=== PATIENT | male | born 1960 | race Caucasian/White ===

== ENCOUNTER 2020-12-18 11:23 | Inpatient (IN) | payer OTHER, SELFPAY ==
--- NOTE | ~2020-12-18 | CT_ITS ---
EXAMINATION: CT ANGIOGRAM OF THE CHEST WITH AND WITHOUT CONTRAST (CT PULMONARY ANGIOGRAM FOR PE) CLINICAL INFORMATION: Reason for Exam hypoxia, COVID-19 COMPARISON: Previous chest x-ray obtained the same day TECHNIQUE: Prior to contrast administration, noncontrast localization images were obtained. Subsequently, multidetector volumetric imaging was performed from the thoracic inlet to below the diaphragms following the administration of 65 mL Omnipaque 350 intravenous contrast. No contrast reaction reported Sagittal, coronal, and MIP oblique sagittal reformatted images were obtained on the CT workstation, uploaded to PACS, and reviewed. This CT examination was performed using dose optimization techniques as appropriate, variously including the following: *Automated exposure control *Adjustment of mA and/or kV according to patient size (this includes techniques or standardized protocols for targeted exams where dose is matched to indication/reason for exam; i.e. extremities or head) *Use of iterative reconstruction technique Total exam dose-length product 368 mGy-cm FINDINGS: QUALITY OF STUDY/CONTRAST BOLUS: Satisfactory. PULMONARY ARTERIES: No central or segmental pulmonary emboli. THORACIC AORTA: No aneurysm or dissection. LUNG: There is scattered peripheral areas of increased groundglass attenuation and increased interstitial markings or crazy paving pattern seen throughout the lungs. This is consistent with patient's history of Covid infection. PLEURA: No pleural effusion or pneumothorax. MEDIASTINUM: The heart is slightly enlarged. No pericardial effusion. There is shotty mediastinal lymphadenopathy. There are no enlarged lymph nodes. No evidence of septal bowing or right heart strain. CHEST WALL/AXILLA: No axillary or internal mammary lymphadenopathy. OSSEOUS STRUCTURES: There are degenerative changes of the spine. There is a 5 mm lucent lesion in the left side of the T4 vertebral body. UPPER ABDOMEN: There is diverticulosis of the colon. There are small low-attenuation liver lesions. The largest measures 1.3 x 2.3 cm in the lateral segment of the left lobe of the liver. These are difficult to characterize No reflux of contrast into the hepatic veins to suggest elevated right heart pressures. CT/CT angio chest PE protocol IMPRESSION: No evidence of pulmonary embolism. Bilateral peripheral infiltrates compatible with patient's diagnosis of Covid infection. Enlarged heart. Low-attenuation liver lesions difficult to characterize. Nonspecific 5 mm lucent lesion in the T4 vertebral body. VTE: negative
--- NOTE | ~2020-12-18 | US_ITS ---
EXAMINATION: US ABDOMEN LIMITED CLINICAL INFORMATION: Assess hepatic lesion. COMPARISON: CT 12/18/2020 TECHNIQUE: Real-time imaging of the right upper quadrant abdominal viscera. Limited portable exam by the bedside. FINDINGS: PANCREAS: Not visualized due to overlying bowel gas. LIVER: Multiple cysts largest left lobe measuring 11 mm corresponding to the recent CT scan. The liver is normal in size. The liver contour is normal. Parenchymal echogenicity is normal. No other focal abnormality. There is no intrahepatic biliary duct dilatation seen. GALLBLADDER: Normal. The gallbladder is physiologically distended without evidence of stones, sludge, polyps, wall thickening or pericholecystic fluid. COMMON BILE DUCT: Normal in caliber measuring 0.4 cm in diameter. RIGHT KIDNEY: Normal. No hydronephrosis. No renal calculi or focal parenchymal lesions. The kidney measures 10.3 cm in maximum dimension. FREE FLUID: None. US/US abdomen limited IMPRESSION: Hepatic cysts only.
--- NOTE | ~2020-12-18 | XR_ITS ---
EXAMINATION: XR CHEST CLINICAL INFORMATION: Hypoxia COMPARISON: None TECHNIQUE: AP portable view of the chest was obtained. FINDINGS: There are patchy regions of airspace disease seen bilaterally. Heart normal size. No evidence of pulmonary edema. No pneumothorax or pleural effusion. XR/XR chest 1V IMPRESSION: Bilateral regions of patchy parenchymal disease.
[2020-12-18 11:40] VITALS: BP 124/73; PULSE 64; RESP 18; O2SAT 93; BMI 33.9
--- NOTE | 2020-12-18 11:47 | ECG_ITS ---
Test Reason : COVID HYPOX Blood Pressure : / mmHG Vent. Rate : 060 BPM Atrial Rate : 060 BPM P-R Int : 182 ms QRS Dur : 100 ms QT Int : 402 ms P-R-T Axes : 043 000 008 degrees QTc Int : 402 ms Normal sinus rhythm Incomplete right bundle branch block Borderline ECG When compared with ECG of 26-MAY-2019 18:11, Premature ventricular complexes are no longer Present Questionable change in QRS axis Referred By: Courtney Belle Electronically Signed By:SHIMA PETTY
[2020-12-18 12:16] LABS: Eosinophils Percent Auto 0.2 % (0-4); Hematocrit 46.8 % (42-52); Hemoglobin 15.8 g/dl (14.0-18.0); Imm Gran Abs Auto 0.02 X10*3/uL (0.00-0.03); Imm Gran Pct Auto 0.5 % (0.0-0.4); Lymphocytes Absolute Auto 1.1 X10*3/uL (1.2-4.9); Lymphocytes Percent Auto 25.5 % (20-40); MANUAL DIFF FLAG SCAN; Mean Corpuscular HGB Conc 33.8 g/dl (31.0-36.0); Mean Corpuscular Volume 88.8 fL (80-98); Mean Platelet Volume 10.1 fL (9.4-12.4); Monocytes Absolute Auto 0.3 X10*3/uL (0.1-1.2); Monocytes Percent Auto 5.9 % (2-11); Neutrophils Absolute Auto 2.9 X10*3/uL (2.0-8.3); Neutrophils Percent Auto 67.9 % (45-73); Platelet Count 224 X10*3/uL (160-400); Red Blood Count 5.27 X10*6/uL (4.60-5.80); Red Cell Distribution Width 12.2 % (11.0-16.0); SCAN SMEAR FLAG 1; White Blood Count 4.2 X10*3/uL (4.8-10.8)
--- NOTE | 2020-12-18 12:16 | ED_ITS ---
HPI - General Adult General Chief complaint: Upper Respiratory Symptoms Stated complaint: covid + low o2 Time Seen by Provider: 12/18/20 11:40 Source: patient Mode of arrival: ambulatory Limitations: no limitations History of Present Illness HPI narrative: 60 y/o male with history of HTN and recent COVID-19 diagnosed on 12/09 who presents from home with reports of low oxygen levels on his pulse oximeter at home. He reports dropping to 87% last night. He was given monoclonal antibody treatment two days ago, arranged by his PCP. He never was vaccinated against COVID. He denies any SOB or chest pain but has a harsh cough with difficulty taking a deep breath. He has ongoing intermittent fevers, nausea and vomiting. MD complaint: hypoxia Onset (ago): day(s) (1) Location: chest Radiation: non-radiation Severity: moderate Quality: aching Pain Consistency: intermittent Relieving factors: none Exacerbating factors: other (deep breaths) Associated symptoms: cough and nausea/vomiting Treatments prior to arrival: none Related Data Allergies Allergy/AdvReac Type Severity Reaction Status Date / Time No Known Allergies Allergy Unverified 01/04/20 15:38 [No Known Allergies*] Review of Systems Review of Systems: Constitutional: + Fever, + Chills ENT/Mouth: + sore throat, + Rhinorrhea, No Swallowing Difficulty Eyes: No Eye Pain, No Swelling, No Redness Cardiovascular: + Chest Pain, No SOB, No Orthopnea, No Edema Respiratory: + Cough, No Sputum, No Wheezing, No dyspnea Gastrointestinal: + Nausea, + Vomiting, No Diarrhea, No abdominal Pain Genitourinary: No Dysuria, No Urinary Frequency, No Hematuria Musculoskeletal: No joint pain, + Myalgias Skin: No Skin Lesions, No rash Neuro: No Weakness, No Numbness, No Dizziness, + Headache Psych: + Anxiety/Panic, No Depression Heme/Lymph: No Bruising, No Lymphadenopathy PMFSH Past Medical History Attestation statement: The following information was validated with the patient. Medical History (Updated 12/18/20 @ 16:12 by PRAMOD Schmidt) HTN (hypertension) Social History Social History Patient Tobacco Use Status: Never used Tobacco Use of substances other than those prescribed or required for medical reasons: No Advance Directives: No Advance Directives Information Provided: No Physical Exam Vital Signs: Vital Signs: Last Vital Signs Temp 98.5 F 12/18/20 12:49 Pulse 53 12/18/20 13:44 Resp 20 12/18/20 13:44 BP 151/87 H 12/18/20 13:44 Pulse Ox 88 L 12/18/20 15:45 Oxygen Flow Rate 2 12/18/20 12:49 Body Mass Index 33.9 Appearance: Alert. Oriented X3. No acute distress. Eyes: Pupils equal, round and reactive to light. left eye with lateral strabismus ENT: Pharynx normal. Neck: Normal inspection. Neck supple. CVS: Normal heart rate and rhythm. Pulses normal. Respiratory: No respiratory distress. Breath sounds with coarse crackles bilateral bases to mid lung fieldsl. Abdomen: Soft and nontender. +BS x4 Skin: Skin warm and dry. Normal skin color. Normal skin turgor. No rashes. Extremities: No lower extremity edema. No calf swelling, erythema or tenderness Neuro: Oriented X 3. No motor deficit. No sensory deficit. Course Course Course Narrative: 60 y/o male with COVID-19, symptoms started 12 days ago who is presenting to the ER with ongoing symptoms of the virus and hypoxia on his pulse oximeter at home. He got outpatient monoclonal antibodies 2 days ago, very late in his disease process. He was 90% on RA on arrival, no respiratory distress, suarez rsh cough with difficulty taking a deep breath. Will get CXR, EKG, inflammatory markers and probable CTA to r/o PE. Reevaluation(s) Reevaluation #1: DDIMER 700s - CTA ordered. SpO2 93-96% on 2L NC. Decadron given. Reevaluation #2: CTA without PE but showing bilateral peripheral infiltrates. Off of supplemental oxygen he is saturating 88-89% at rest. Placed back on O2 with improvement. Plan for admission for acute hypoxia. Dr. Chacon TT for admission. Patient agreeable with plan. Medical Decision Making Lab Data Result diagrams: 12/18/20 12:03 12/18/20 12:03 Labs: Lab Results 12/18/20 12/18/20 12/18/20 Range/Units 12:03 12:03 12:03 WBC 4.2 L (4.8-10.8) X10*3/uL RBC 5.27 (4.60-5.80) X10*6/uL Hgb 15.8 (14.0-18.0) g/dl Hct 46.8 (42-52) % MCV 88.8 (80-98) fL MCH 30.0 (27.0-33.0) pg MCHC 33.8 (31.0-36.0) g/dl RDW 12.2 (11.0-16.0) % Plt Count 224 (160-400) X10*3/uL MPV 10.1 (9.4-12.4) fL Immature Gran % (Auto) 0.5 H (0.0-0.4) % Neut % (Auto) 67.9 (45-73) % Lymph % (Auto) 25.5 (20-40) % [place] % (Auto) 5.9 (2-11) % Eos % (Auto) 0.2 (0-4) % Baso % (Auto) 0.0 (0-2) % Lymph # (Auto) 1.1 L (1.2-4.9) X10*3/uL [place] # (Auto) 0.3 (0.1-1.2) X10*3/uL Eos # (Auto) 0.0 (0.0-0.4) X10*3/uL Baso # (Auto) 0.0 (0.0-0.2) X10*3/uL Abs Immat Gran (auto) 0.02 (0.00-0.03) X10*3/uL Absolute Neuts (auto) 2.9 (2.0-8.3) X10*3/uL Absolute Nucleated RBC 0.000 (0.0-0.012) X10*3/uL Nucleated RBC % (auto) 0.0 (0.0-0.2) /100WBC Smear Tech's Comments VERIFIED D-Dimer NG/ML Sodium 138 (135-145) mmol/L Potassium 4.1 (3.3-5.1) mmol/L Chloride 100 (96-108) mmol/L Carbon Dioxide 30 H (22-29) mmol/L Anion Gap 12 (12-20) BUN 17 H (9-16) mg/dL Creatinine 1.07 (0.5-1.4) mg/dL Estim Creat Clear Calc 81.2 Estimated GFR > 60 Random Glucose 113 (60-115) mg/dL Lactic Acid (0.5-2.0) mmol/L Calcium 9.4 (8.4-10.2) mg/dL Magnesium (1.6-2.6) mg/dL Total Bilirubin 1.1 H (0.0-1.0) mg/dL Direct Bilirubin 0.5 (0.0-0.5) mg/dL AST 35 (5-37) U/L ALT 43 H (0-40) U/L Alkaline Phosphatase 45 (39-117) U/L C-Reactive Protein (< or = 0.50) mg/dL Total Protein 6.9 (6.5-8.0) g/dL Albumin 4.1 (3.5-5.0) g/dL COVID-19 (KEITH) Positive A (Negative) COVID-19 Clin Com See Note 12/18/20 12/18/20 12/18/20 Range/Units 12:03 12:03 12:03 WBC (4.8-10.8) X10*3/uL RBC (4.60-5.80) X10*6/uL Hgb (14.0-18.0) g/dl Hct (42-52) % MCV (80-98) fL MCH (27.0-33.0) pg MCHC (31.0-36.0) g/dl RDW (11.0-16.0) % Plt Count (160-400) X10*3/uL MPV (9.4-12.4) fL Immature Gran % (Auto) (0.0-0.4) % Neut % (Auto) (45-73) % Lymph % (Auto) (20-40) % [place] % (Auto) (2-11) % Eos % (Auto) (0-4) % Baso % (Auto) (0-2) % Lymph # (Auto) (1.2-4.9) X10*3/uL [place] # (Auto) (0.1-1.2) X10*3/uL Eos # (Auto) (0.0-0.4) X10*3/uL Baso # (Auto) (0.0-0.2) X10*3/uL Abs Immat Gran (auto) (0.00-0.03) X10*3/uL Absolute Neuts (auto) (2.0-8.3) X10*3/uL Absolute Nucleated RBC (0.0-0.012) X10*3/uL Nucleated RBC % (auto) (0.0-0.2) /100WBC Smear Tech's Comments D-Dimer 762 NG/ML Sodium (135-145) mmol/L Potassium (3.3-5.1) mmol/L Chloride (96-108) mmol/L Carbon Dioxide (22-29) mmol/L Anion Gap (12-20) BUN (9-16) mg/dL Creatinine (0.5-1.4) mg/dL Estim Creat Clear Calc Estimated GFR Random Glucose (60-115) mg/dL Lactic Acid 1.1 (0.5-2.0) mmol/L Calcium (8.4-10.2) mg/dL Magnesium 2.4 (1.6-2.6) mg/dL Total Bilirubin (0.0-1.0) mg/dL Direct Bilirubin (0.0-0.5) mg/dL AST (5-37) U/L ALT (0-40) U/L Alkaline Phosphatase (39-117) U/L C-Reactive Protein 9.26 H (< or = 0.50) mg/dL Total Protein (6.5-8.0) g/dL Albumin (3.5-5.0) g/dL COVID-19 (KEITH) (Negative) COVID-19 Clin Com ECG Data Attestation: I personally reviewed and interpreted this ECG as follows: Prior ECG tracings: available for review Interpretation: normal sinus rhythm, HR 60 bpm, incomplete RBBB, normal VT interval 182 ms, t-wave inversions in leads III & V1 Critical Care Time Critical Care Time Critical Care Time: Yes Total Critical Care Time: 48 Attestation: I have personally provided critical care time exclusive of time spent on separately billable procedures. Time includes review of lab data, radiology results, discussion with consultants, and monitoring for potential decompensation. Intervention performed as documented. Discharge Plan Discharge Clinical Impression: Acute respiratory failure with hypoxia, COVID-19 Patient Disposition: Admitted As Inpatient
[2020-12-18 12:26] LABS: D Dimer 762 NG/ML
[2020-12-18 12:30] LABS: COVID-19 Test Positive (Negative)
[2020-12-18 12:31] LABS: C Reactive Protein 9.26 mg/dL (< or = 0.50); Lactic Acid 1.1 mmol/L (0.5-2.0); Magnesium 2.4 mg/dL (1.6-2.6)
[2020-12-18 12:33] LABS: Alanine Aminotransferase 43 U/L (0-40); Albumin Level 4.1 g/dL (3.5-5.0); Alkaline Phosphatase 45 U/L (39-117); Anion Gap 12 (12-20); Aspartate Amino Transferase 35 U/L (5-37); Bilirubin Direct 0.5 mg/dL (0.0-0.5); Bilirubin Total 1.1 mg/dL (0.0-1.0); Blood Urea Nitrogen 17 mg/dL (9-16); Calcium 9.4 mg/dL (8.4-10.2); Carbon Dioxide 30 mmol/L (22-29); Chloride 100 mmol/L (96-108); Creatinine Clr Calc Pharmacy 81.2; Estimated Glomerular Filt Rate > 60; Glucose Random 113 mg/dL (60-115); Potassium 4.1 mmol/L (3.3-5.1); Sodium 138 mmol/L (135-145); Total Protein 6.9 g/dL (6.5-8.0)
[2020-12-18 12:48] LABS: SLIDE REVIEW VERIFIED
[2020-12-18 12:49] VITALS: BP 151/87; PULSE 62; PULSE 63; RESP 18; TEMP 36.9; O2SAT 97
[2020-12-18] MEDS: dexAMETHasone sod phosphate 4 MG/ML VIAL 6 MG IVPUSH (13:42)
[2020-12-18 13:44] VITALS: BP 151/87; PULSE 53; RESP 20; O2SAT 97
[2020-12-18] MEDS: iohexoL 350 MG/ML 100 ML INFUS..BTL IV (14:40)
[2020-12-18 15:45] VITALS: O2SAT 88
--- NOTE | 2020-12-18 15:45 | PC.NURSE ---
pt alert and oriented, skin pwd, respirations even and unlabored, ls diminished, pt reports slight chest tightness when coughing, pt currently on 3l sating at 96%, pt taken of the oxygen for trial but pt's oxygen level drops to 88%, pt put back on 2l via nasal cannual.
[2020-12-18 16:47] LABS: Lactate Dehydrogenase 362 U/L (118-273)
--- NOTE | 2020-12-18 16:57 | PHA.MEDREC ---
Pharmacy Consult ? Medication Reconciliation Pharmacy has completed the medication reconciliation SPOKE WITH PATIENT.
[2020-12-18 17:12] LABS: Procalcitonin 0.34 ng/mL
[2020-12-18] MEDS: Enoxaparin Sodium 40 MG/0.4 ML SYRINGE SUBCUT (17:24)
[2020-12-18 17:28] VITALS: PULSE 63; RESP 20; TEMP 36.8; O2SAT 96
--- NOTE | 2020-12-18 17:32 | PM.IMHP ---
History of Present Illness Date of Service: 12/18/20 Chief Complaint: dyspnea 60yo M with HTN not vaccinated against COVID-19 presenting on 12th day of illness with fever, chills, dry cough, and sore throat. He was diagnosed with COVID-19 on 12/09/20 and has been monitoring his SaO2 with a pulse oximeter at home. He was given monoclonal antibody treatment at [facility] 2 days ago. He became hypoxic yesterday with SaO2 87% on room air. Here in the ED, SaO2 was 88% on room air. His was recently discharged from this hospital after being treated for COVID-19 pneumonia. He denies history of diabetes, heart failure, coronary artery disease, or chronic lung disease. Review of Systems Review of Systems: Yes all other systems are reviewed and are negative [facility] Medical History HTN (hypertension) Pertinent family history: no cardiac disease Social History Patient Tobacco Use Status: Never used Tobacco Use of substances other than those prescribed or required for medical reasons: No Advance Directives: No Advance Directives Information Provided: No Meds Allergies Allergy/AdvReac Type Severity Reaction Status Date / Time No Known Allergies Allergy Unverified 01/04/20 15:38 [No Known Allergies*] Active Medications: Current Medications Generic Name Dose Route Start Last Admin Trade Name Freq PRN Reason Stop Dose Admin Acetaminophen 650 mg 12/18/20 16:56 Acetaminophen 325 Mg Tablet PO Q6H PRN Pain, Mild (Pain Scale 1-3) Dexamethasone Sodium Phosphate 6 mg 12/19/20 09:00 Dexamethasone Sod Phosphate 4 Mg/Ml Vial IVPUSH 12/27/20 09:01 DAILY BARRIE Enoxaparin Sodium 40 mg 12/18/20 17:00 12/18/20 17:24 Enoxaparin Sodium 40 Mg/0.4 Ml Syringe SUBCUT 40 mg Q24H BARRIE Administration Lisinopril 20 mg 12/18/20 17:00 12/18/20 17:25 Lisinopril 20 Mg Tablet PO Not Given DAILY [facility] Protocol Omeprazole 20 mg 12/18/20 16:59 Omeprazole 20 Mg Capsule. PO DAILY PRN Acid Reflux Ondansetron HCl 4 mg 12/18/20 16:56 Ondansetron Hcl 4 Mg/2 Ml Vial IVPUSH Q8H PRN Nausea and Vomiting Polyethylene Glycol 17 gm 12/18/20 16:42 Polyethylene Glycol 3350 17 Gm Powd.Pack PO DAILY PRN constipation Senna 17.2 mg 12/18/20 21:00 Sennosides 8.6 Mg Tablet PO BID [facility] Sodium Chloride 3 ml 12/19/20 00:00 0.9 % Sodium Chloride Flush 3 Ml Syringe IVFLUSH QSHIFT [facility] Home Medications Medication Instructions Recorded Confirmed Last Taken Type lisinopril 20 mg tablet 1 tab PO DAILY 12/18/20 12/18/20 12/18/20 History omeprazole 20 mg capsule,delayed 1 cap PO DAILY PRN 12/18/20 12/18/20 Unknown History release ondansetron HCl 4 mg tablet 1 tab PO Q8H PRN 12/18/20 12/18/20 Unknown History Physical Exam Vital Signs and Narrative: Vital Signs: Last Vital Signs Temp 98.3 F 12/18/20 17:28 Pulse 63 12/18/20 17:28 Resp 20 12/18/20 17:28 BP 151/87 H 12/18/20 13:44 Pulse Ox 96 12/18/20 17:28 Oxygen Flow Rate 2 12/18/20 12:49 Body Mass Index 33.9 Gen: nontoxic appearing but slightly tachypneic at 22 HEENT: sclera anicteric, moist mucus membranes Neck: supple Lungs: mild tachypnea, clear bilaterally Heart: regular rate and rhythm, no murmurs Abd: soft, non-tender, non-distended Ext: no edema Skin: warm/well-perfused Neuro: alert and oriented x3, no focal findings Psych: appropriate affect Results Labs CBC and Chem 7: 12/18/20 12:03 12/18/20 12:03 Labs: Laboratory Results - last 24 hr 12/18/20 12/18/20 12/18/20 12:03 12:03 12:03 MCV 88.8 MCH 30.0 MCHC 33.8 RDW 12.2 Plt Count 224 MPV 10.1 Immature Gran % (Auto) 0.5 H Neut % (Auto) 67.9 Lymph % (Auto) 25.5 [place] % (Auto) 5.9 Eos % (Auto) 0.2 Baso % (Auto) 0.0 Lymph # (Auto) 1.1 L [place] # (Auto) 0.3 Eos # (Auto) 0.0 Baso # (Auto) 0.0 Abs Immat Gran (auto) 0.02 Absolute Neuts (auto) 2.9 Absolute Nucleated RBC 0.000 Nucleated RBC % (auto) 0.0 Smear Tech's Comments VERIFIED D-Dimer Anion Gap 12 Estim Creat Clear Calc 81.2 Estimated GFR > 60 Random Glucose 113 Lactic Acid Calcium 9.4 Magnesium Total Bilirubin 1.1 H Direct Bilirubin 0.5 AST 35 ALT 43 H Alkaline Phosphatase 45 Lactate Dehydrogenase 362 H C-Reactive Protein Total Protein 6.9 Albumin 4.1 Procalcitonin COVID-19 (KEITH) Positive A COVID-19 Clin Com See Note 12/18/20 12/18/20 12/18/20 12:03 12:03 12:03 MCV MCH MCHC RDW Plt Count MPV Immature Gran % (Auto) Neut % (Auto) Lymph % (Auto) [place] % (Auto) Eos % (Auto) Baso % (Auto) Lymph # (Auto) [place] # (Auto) Eos # (Auto) Baso # (Auto) Abs Immat Gran (auto) Absolute Neuts (auto) Absolute Nucleated RBC Nucleated RBC % (auto) Smear Tech's Comments D-Dimer 762 Anion Gap Estim Creat Clear Calc Estimated GFR Random Glucose Lactic Acid 1.1 Calcium Magnesium 2.4 Total Bilirubin Direct Bilirubin AST ALT Alkaline Phosphatase Lactate Dehydrogenase C-Reactive Protein 9.26 H Total Protein Albumin Procalcitonin COVID-19 (KEITH) COVID-[facility] Clin Com 12/18/20 12:03 MCV MCH MCHC RDW Plt Count MPV Immature Gran % (Auto) Neut % (Auto) Lymph % (Auto) [place] % (Auto) Eos % (Auto) Baso % (Auto) Lymph # (Auto) [place] # (Auto) Eos # (Auto) Baso # (Auto) Abs Immat Gran (auto) Absolute Neuts (auto) Absolute Nucleated RBC Nucleated RBC % (auto) Smear Tech's Comments D-Dimer Anion Gap Estim Creat Clear Calc Estimated GFR Random Glucose Lactic Acid Calcium Magnesium Total Bilirubin Direct Bilirubin AST ALT Alkaline Phosphatase Lactate Dehydrogenase C-Reactive Protein Total Protein Albumin Procalcitonin 0.34 COVID-19 (KEITH) COVID-19 Clin Com Imaging Radiologist's Impressions: Impressions Chest X-Ray 12/18/20 11:40 IMPRESSION: Bilateral regions of patchy parenchymal disease. Chest CTA 12/18/20 12:28 IMPRESSION: No evidence of pulmonary embolism. Bilateral peripheral infiltrates compatible with patient's diagnosis of Covid infection. Enlarged heart. Low-attenuation liver lesions difficult to characterize. Nonspecific 5 mm lucent lesion in the T4 vertebral body. VTE: negative Assessment and Plan (1) Acute respiratory failure with hypoxia: Status: Acute (2) COVID-19: Status: Acute 60yo M with HTN presenting on 12th day of illness with COVID-19, found to be hypoxic; received monoclonal antibody infusion as outpt 2d ago. # acute hypoxic resp failure # COVID-19 PNA - admit to [facility] on isolation, treat with dexamethasone 6 mg/d x10d. consult ID though doubt any role for remdesivir this far into illness. supplemental O2 via NC, wean as tolerated; encouarge awake proning. # HTN - lisinopril # VTE ppx - LMWH # code - FULL Quality Stroke Does the patient have a stroke diagnosis?: No VTE Prior VTE?: No VTE Risk Level:: Medical - moderate - high VTE Device Contraindication: N/A - Device Ordered VTE Drug Contraindication: N/A - Med Ordered
[2020-12-18 17:54] LABS: Ferritin 2388 ng/mL (20-250)
[2020-12-18 20:00] VITALS: BP 162/88; PULSE 62; RESP 20; TEMP 35.6; O2SAT 95
[2020-12-19] VITALS (8 sets, daily range): BP systolic 121–158; BP diastolic 60–85; PULSE 48–63; RESP 18–20; TEMP 36.2–37.4; O2SAT 92–97
[2020-12-19] MEDS: 0.9 % Sodium Chloride Flush 3 ML SYRINGE IVFLUSH ×3 (00:22→16:34)
[2020-12-19 08:24] LABS: Hematocrit 44.5 % (42-52); Mean Corpuscular HGB Conc 33.7 g/dl (31.0-36.0); Mean Corpuscular Hemoglobin 29.8 pg (27.0-33.0); Mean Corpuscular Volume 88.5 fL (80-98); Mean Platelet Volume 10.5 fL (9.4-12.4); Platelet Count 261 X10*3/uL (160-400); Red Blood Count 5.03 X10*6/uL (4.60-5.80); White Blood Count 4.5 X10*3/uL (4.8-10.8)
[2020-12-19 08:45] LABS: Anion Gap 12 (12-20); Blood Urea Nitrogen 17 mg/dL (9-16); Calcium 9.3 mg/dL (8.4-10.2); Carbon Dioxide 31 mmol/L (22-29); Chloride 101 mmol/L (96-108); Creatinine Clr Calc Pharmacy 99.9; Estimated Glomerular Filt Rate > 60; Glucose Random 151 mg/dL (60-115); Potassium 4.9 mmol/L (3.3-5.1); Sodium 139 mmol/L (135-145)
[2020-12-19] MEDS: dexAMETHasone sod phosphate 4 MG/ML VIAL 6 MG IVPUSH (09:59)
[2020-12-19] MEDS: lisinopriL 20 MG TABLET PO (09:59)
--- NOTE | 2020-12-19 10:03 | MHC.CM.PN ---
Patient is Covid (+); CM attempted to reach Patient by his cell # and room phone at EXT. [phone], but was unable to do so. CM spoke with HCP//Geena who who indicates that Patient and her only cohabitate (Geena states that Patient has PTSD, OCD, some SI when he gets anxious or frustrated and significant negativity and that they openly date other people).Patient may benefit from a CARE TEAM CONSULT. HOME is the goal for dc and CM has initiated and will follow for dc planning. PCP is Dr. Zeina Talbert.
--- NOTE | 2020-12-19 10:11 | MHC.CM.PN ---
ADDENDUM to last CM note- Per /Geena, Patient has refused X10 years to address his Mental Health needs since the war (PTSD,OCD,SI).
--- NOTE | 2020-12-19 11:51 | HO.PM.IMPN ---
Subjective Subjective Date of Service: 12/19/20 Interval History: Cough + dyspnea No chest pain No fever No nausea or vomiting Review of Systems Review of Systems: Yes all other systems are reviewed and are negative Physical Exam Vital Signs: Vital Signs: Last Vital Signs Temp 99.4 F 12/19/20 08:00 Pulse 55 12/19/20 09:59 Resp 20 12/19/20 08:00 BP 132/83 12/19/20 09:59 Pulse Ox 97 12/19/20 08:00 Oxygen Flow Rate 2 12/18/20 12:49 Body Mass Index 33.9 Gen: in no acute distress HEENT: sclera anicteric, moist mucus membranes Neck: supple Lungs: clear to auscultation bilaterally Heart: regular rate and rhythm, no murmurs Abd: soft, non-tender, non-distended Ext: no edema Skin: warm/well-perfused Neuro: alert and oriented x3, no focal findings Psych: appropriate affect Objective Data Active Medications Acetaminophen (Acetaminophen 325 Mg Tablet) 650 mg PO Q6H PRN PRN Reason: Pain, Mild (Pain Scale 1-3) Dexamethasone Sodium Phosphate (Dexamethasone Sod Phosphate 4 Mg/Ml Vial) 6 mg IVPUSH DAILY [facility] Stop: 12/27/20 09:01 Last Admin: 12/19/20 09:59 Dose: 6 mg Documented by: AKI Enoxaparin Sodium (Enoxaparin Sodium 40 Mg/0.4 Ml Syringe) 40 mg SUBCUT Q24H [facility] Last Admin: 12/18/20 17:24 Dose: 40 mg Documented by: JUWAN Lisinopril (Lisinopril 20 Mg Tablet) 20 mg PO DAILY [facility]; Protocol Last Admin: 12/19/20 09:59 Dose: 20 mg Documented by: AKI Omeprazole (Omeprazole 20 Mg Capsule.Dr) 20 mg PO DAILY PRN PRN Reason: Acid Reflux Ondansetron HCl (Ondansetron Hcl 4 Mg/2 Ml Vial) 4 mg IVPUSH Q8H PRN PRN Reason: Nausea and Vomiting Polyethylene Glycol (Polyethylene Glycol 3350 17 Gm Powd.Pack) 17 gm PO DAILY PRN PRN Reason: constipation Senna (Sennosides 8.6 Mg Tablet) 17.2 mg PO BID [facility] Last Admin: 12/19/20 10:01 Dose: Not Given Documented by: AKI Non-Admin Reason: Patient Refused Sodium Chloride (0.9 % Sodium Chloride Flush 3 Ml Syringe) 3 ml IVFLUSH QSHIFT [facility] Last Admin: 12/19/20 09:59 Dose: 3 ml Documented by: AKI Labs CBC & Chem 7: 12/19/20 07:43 12/19/20 07:43 Labs: Laboratory Results - last 24 hr 12/18/20 12/18/20 12/18/20 12:03 12:03 12:03 MCV 88.8 MCH 30.0 MCHC 33.8 RDW 12.2 Plt Count 224 MPV 10.1 Immature Gran % (Auto) 0.5 H Neut % (Auto) 67.9 Lymph % (Auto) 25.5 [place] % (Auto) 5.9 Eos % (Auto) 0.2 Baso % (Auto) 0.0 Lymph # (Auto) 1.1 L [place] # (Auto) 0.3 Eos # (Auto) 0.0 Baso # (Auto) 0.0 Abs Immat Gran (auto) 0.02 Absolute Neuts (auto) 2.9 Absolute Nucleated RBC 0.000 Nucleated RBC % (auto) 0.0 Smear Tech's Comments VERIFIED D-Dimer Anion Gap 12 Estim Creat Clear Calc 81.2 Estimated GFR > 60 Random Glucose 113 Lactic Acid Calcium 9.4 Magnesium Ferritin 2388 H Total Bilirubin 1.1 H Direct Bilirubin 0.5 AST 35 ALT 43 H Alkaline Phosphatase 45 Lactate Dehydrogenase 362 H C-Reactive Protein Total Protein 6.9 Albumin 4.1 Procalcitonin COVID-19 ([facility]) Positive A COVID-19 Clin Com See Note 12/18/20 12/18/20 12/18/20 12:03 12:03 12:03 MCV MCH MCHC RDW Plt Count MPV Immature Gran % (Auto) Neut % (Auto) Lymph % (Auto) [place] % (Auto) Eos % (Auto) Baso % (Auto) Lymph # (Auto) [place] # (Auto) Eos # (Auto) Baso # (Auto) Abs Immat Gran (auto) Absolute Neuts (auto) Absolute Nucleated RBC Nucleated RBC % (auto) Smear Tech's Comments D-Dimer 762 Anion Gap Estim Creat Clear Calc Estimated GFR Random Glucose Lactic Acid 1.1 Calcium Magnesium 2.4 Ferritin Total Bilirubin Direct Bilirubin AST ALT Alkaline Phosphatase Lactate Dehydrogenase C-Reactive Protein 9.26 H Total Protein Albumin Procalcitonin COVID-19 ([facility]) COVID-19 Clin Com 12/18/20 12/19/20 12/19/20 12:03 07:43 07:43 MCV 88.5 MCH 29.8 MCHC 33.7 RDW 12.0 Plt Count 261 MPV 10.5 Immature Gran % (Auto) Neut % (Auto) Lymph % (Auto) [place] % (Auto) Eos % (Auto) Baso % (Auto) Lymph # (Auto) [place] # (Auto) Eos # (Auto) Baso # (Auto) Abs Immat Gran (auto) Absolute Neuts (auto) Absolute Nucleated RBC 0.000 Nucleated RBC % (auto) 0.0 Smear Tech's Comments D-Dimer Anion Gap 12 Estim Creat Clear Calc 99.9 Estimated GFR > 60 Random Glucose 151 H Lactic Acid Calcium 9.3 Magnesium Ferritin Total Bilirubin Direct Bilirubin AST ALT Alkaline Phosphatase Lactate Dehydrogenase C-Reactive Protein Total Protein Albumin Procalcitonin 0.34 COVID-19 ([facility]) COVID-19 Clin Com Assessment and Plan (1) Acute respiratory failure with hypoxia: Status: Acute (2) COVID-19: Status: Acute Assessment and Plan: hospital d#2 60yo M with HTN presenting on 12th day of illness with COVID-19, against which he was not vaccinated found to be hypoxic despite outpatient monoclonal antibody infusion # acute hypoxic respiratory failure # severe COVID-19 PNA - continue isolation, dexamethasone d#05/29, consult ID though doubt any role for remdesivir this far into illness - wean supplemental O2 as tolerated; encourage awake proning # HTN - continue lisinopril # VTE ppx - LMWH Quality Stroke Does the patient have a stroke diagnosis?: No VTE Prior VTE?: No VTE Risk Level:: Medical - moderate - high VTE Device Contraindication: N/A - Device Ordered VTE Drug Contraindication: N/A - Med Ordered
[2020-12-19] MEDS: Enoxaparin Sodium 40 MG/0.4 ML SYRINGE SUBCUT (16:34)
--- NOTE | 2020-12-19 22:53 | W.PM.IDCN ---
History of Present Illness Data of Consult Service Date: 12/19/20 Requesting physician: Arsh Shea Primary Care Provider: Zeina Talbert NP HPI Reason for consult: hypoxia,COVID He has been coughing and has shortness of breath. He was hypoxic and has oxygen saturation 88% He has had symptoms since 12/09 He didnt bother to take time off work he said to get vaccinated Review of Systems Review of Systems: Yes all other systems are reviewed and are negative [facility] Past Medical History Medical History HTN (hypertension) Family History Family history: reviewed and not pertinent Social History Social History Household Members: Spouse Housing: House Do you presently have visiting nurse or other home services: No Patient Tobacco Use Status: Never used Tobacco Use of substances other than those prescribed or required for medical reasons: No Currently Displaying Signs/Symptoms of Drug Intoxication Withdrawal: No Have you been hit, kicked, punched, or otherwise hurt by someone within the past year? If so, by whom?: No Do you feel safe in your current relationship?: Yes Is there a partner from a previous relationship who is making you feel unsafe now?: No Are you made to feel afraid or neglected: No Advance Directives: No Advance Directives Information Provided: No Do you have thoughts of harming others: None Do you have a plan to hurt others: No Plan Recently lost weight without trying: No Nutrition Risks: No Nutritional Risk service: Yes Current occupational status: employed Meds Allergies Allergy/AdvReac Type Severity Reaction Status Date / Time No Known Allergies Allergy Unverified 01/04/20 15:38 [No Known Allergies*] Active Medications: Current Medications Generic Name Dose Route Start Last Admin Trade Name Freq PRN Reason Stop Dose Admin Acetaminophen 650 mg 12/18/20 16:56 Acetaminophen 325 Mg Tablet PO Q6H PRN Pain, Mild (Pain Scale 1-3) Dexamethasone Sodium Phosphate 6 mg 12/19/20 09:00 12/19/20 09:59 Dexamethasone Sod Phosphate 4 Mg/Ml Vial IVPUSH 12/27/20 09:01 6 mg DAILY [facility] Administration Enoxaparin Sodium 40 mg 12/18/20 17:00 12/19/20 16:34 Enoxaparin Sodium 40 Mg/0.4 Ml Syringe SUBCUT 40 mg Q24H [facility] Administration Lisinopril 20 mg 12/18/20 17:00 12/19/20 09:59 Lisinopril 20 Mg Tablet PO 20 mg DAILY [facility] Administration Protocol Omeprazole 20 mg 12/18/20 16:59 Omeprazole 20 Mg Capsule.Dr PO DAILY PRN Acid Reflux Ondansetron HCl 4 mg 12/18/20 16:56 Ondansetron Hcl 4 Mg/2 Ml Vial IVPUSH Q8H PRN Nausea and Vomiting Polyethylene Glycol 17 gm 12/18/20 16:42 Polyethylene Glycol 3350 17 Gm Powd.Pack PO DAILY PRN constipation Senna 17.2 mg 12/18/20 21:00 12/19/20 20:20 Sennosides 8.6 Mg Tablet PO Not Given BID [facility] Sodium Chloride 3 ml 12/19/20 00:00 12/19/20 16:34 0.9 % Sodium Chloride Flush 3 Ml Syringe IVFLUSH 3 ml QSHIFT [facility] Administration Home Medications Medication Instructions Recorded Confirmed Last Taken Type lisinopril 20 mg tablet 1 tab PO DAILY 12/18/20 12/18/20 12/18/20 History omeprazole 20 mg capsule,delayed 1 cap PO DAILY PRN 12/18/20 12/18/20 Unknown History release ondansetron HCl 4 mg tablet 1 tab PO Q8H PRN 12/18/20 12/18/20 Unknown History Physical Exam Vital Signs: Vital Signs: Last Vital Signs Temp 97.8 F 12/19/20 19:12 Pulse 63 12/19/20 19:12 Resp 18 12/19/20 19:12 BP 148/75 H 12/19/20 19:12 Pulse Ox 95 12/19/20 19:12 Oxygen Flow Rate 2 12/18/20 12:49 Body Mass Index 33.9 Const: General: cooperative HENMT: Head: Yes normal to inspection Mouth: Normal oral and palatal mucosa present Eyes: General: appearance normal, both eyes and all related structures Resp: Effort & Inspection: normal respiratory effort Cardio: Rate: regular rate Rhythm: regular rhythm GI: Palpation (GI): nontender Extrem: General: Yes normal to inspection Results Labs CBC & Chem 7: 12/19/20 07:43 12/19/20 07:43 Labs: Short CBC 12/19/20 Range/Units 07:43 WBC 4.5 L (4.8-10.8) X10*3/uL Hgb 15.0 (14.0-18.0) g/dl Hct 44.5 (42-52) % Plt Count 261 (160-400) X10*3/uL BMP 12/19/20 07:43 Sodium 139 Potassium 4.9 Chloride 101 Carbon Dioxide 31 H BUN 17 H Creatinine 0.87 Calcium 9.3 Microbiology Microbiology Results: Microbiology 12/18/20 12:59 Blood - Venous Blood Culture - Preliminary No growth after 24 hours. 12/18/20 12:03 Blood - Venous Blood Culture - Preliminary No growth after 24 hours. Assessment and Plan (1) Acute respiratory failure with hypoxia: Status: Acute He has COVID for 12 days He may have some pulmonary fibrosis NKDA (2) COVID-19: Status: Acute Oxygen Too late Remdesivir ,12-14 days in to illness Dexamethasone is late as well but can use Tocilizumab wouldnt be useful either,too late and failed monoclonal antibodies No antibiotics
[2020-12-20] VITALS (8 sets, daily range): BP systolic 126–144; BP diastolic 69–85; PULSE 42–62; RESP 20–22; TEMP 36.1–36.8; O2SAT 89–96
[2020-12-20] MEDS: 0.9 % Sodium Chloride Flush 3 ML SYRINGE IVFLUSH ×4 (00:35→20:21)
--- NOTE | 2020-12-20 06:45 | PC.NURSE ---
Put patient down to 1 liter - educated patient. Patient tolerating 1 liter - O2sat 93-94% still.
[2020-12-20 06:53] LABS: Hematocrit 43.8 % (42-52); Hemoglobin 14.8 g/dl (14.0-18.0); Mean Corpuscular HGB Conc 33.8 g/dl (31.0-36.0); Mean Corpuscular Volume 88.7 fL (80-98); Mean Platelet Volume 10.5 fL (9.4-12.4); Platelet Count 330 X10*3/uL (160-400); Red Blood Count 4.94 X10*6/uL (4.60-5.80); Red Cell Distribution Width 11.9 % (11.0-16.0); White Blood Count 8.8 X10*3/uL (4.8-10.8)
[2020-12-20 07:00] LABS: D Dimer 455 NG/ML
[2020-12-20] MEDS: lisinopriL 20 MG TABLET PO (08:01)
[2020-12-20] MEDS: dexAMETHasone sod phosphate 4 MG/ML VIAL 6 MG IVPUSH (08:01)
[2020-12-20 08:21] LABS: Alanine Aminotransferase 61 U/L (0-40); Albumin Level 3.6 g/dL (3.5-5.0); Alkaline Phosphatase 46 U/L (39-117); Anion Gap 13 (12-20); Aspartate Amino Transferase 29 U/L (5-37); Bilirubin Total 1.1 mg/dL (0.0-1.0); Blood Urea Nitrogen 20 mg/dL (9-16); C Reactive Protein 2.84 mg/dL (< or = 0.50); Calcium 9.6 mg/dL (8.4-10.2); Carbon Dioxide 30 mmol/L (22-29); Chloride 103 mmol/L (96-108); Creatinine Clr Calc Pharmacy 101.1; Estimated Glomerular Filt Rate > 60; Glucose Random 159 mg/dL (60-115); Potassium 4.6 mmol/L (3.3-5.1); Sodium 141 mmol/L (135-145); Total Protein 6.1 g/dL (6.5-8.0)
--- NOTE | 2020-12-20 12:34 | MHC.CM.PN ---
Male 60 DX Covid. He lives with his . He is independent. LOS r/t course of Remdesivir day#3. DP home with and private transport. Care team will educate pt on community resources. CM will follow.
--- NOTE | 2020-12-20 15:20 | P.PNIM_ITS ---
Subjective Subjective Date of Service: 12/20/20 Interval History: Respiratory failure secondary to pneumonia. Review of Systems Patient is still shortness of breath and has cough. Denies any chest pain or abdominal pain or nausea or vomiting or fever. Physical Exam Vital Signs: Vital Signs: Last Vital Signs Temp 98.3 F 12/20/20 11:53 Pulse 58 12/20/20 11:53 Resp 20 12/20/20 11:53 BP 144/85 H 12/20/20 11:53 Pulse Ox 96 12/20/20 11:53 Oxygen Flow Rate 2 12/18/20 12:49 Body Mass Index 33.9 Physical exam: Cvs: rrr, [id number] , no murmur res: air entry improving ,slightly diminshed at bases. abd: no rebound or guarding ,nt, bs present. ext pulses present , no cyanosis neuro: axo3 , nonfocal. Objective Data Active Medications Acetaminophen (Acetaminophen 325 Mg Tablet) 650 mg PO Q6H PRN PRN Reason: Pain, Mild (Pain Scale 1-3) Dexamethasone Sodium Phosphate (Dexamethasone Sod Phosphate 4 Mg/Ml Vial) 6 mg IVPUSH DAILY [facility] Stop: 12/27/20 09:01 Last Admin: 12/20/20 08:01 Dose: 6 mg Documented by: AKI Enoxaparin Sodium (Enoxaparin Sodium 40 Mg/0.4 Ml Syringe) 40 mg SUBCUT Q24H [facility] Last Admin: 12/19/20 16:34 Dose: 40 mg Documented by: AKI Lisinopril (Lisinopril 20 Mg Tablet) 20 mg PO DAILY [facility]; Protocol Last Admin: 12/20/20 08:01 Dose: 20 mg Documented by: AKI Omeprazole (Omeprazole 20 Mg Capsule.Dr) 20 mg PO DAILY PRN PRN Reason: Acid Reflux Ondansetron HCl (Ondansetron Hcl 4 Mg/2 Ml Vial) 4 mg IVPUSH Q8H PRN PRN Reason: Nausea and Vomiting Polyethylene Glycol (Polyethylene Glycol 3350 17 Gm Powd.Pack) 17 gm PO DAILY PRN PRN Reason: constipation Senna (Sennosides 8.6 Mg Tablet) 17.2 mg PO BID [facility] Last Admin: 12/20/20 08:02 Dose: Not Given Documented by: AKI Non-Admin Reason: Patient Refused Sodium Chloride (0.9 % Sodium Chloride Flush 3 Ml Syringe) 3 ml IVFLUSH QSDCFT [facility] Last Admin: 12/20/20 08:01 Dose: 3 ml Documented by: AKI Labs CBC & Chem 7: 12/20/20 06:00 12/20/20 06:00 Labs: Laboratory Results - last 24 hr 12/20/20 12/20/20 12/20/20 06:00 06:00 06:00 MCV 88.7 MCH 30.0 MCHC 33.8 RDW 11.9 Plt Count 330 D MPV 10.5 Absolute Nucleated RBC 0.000 Nucleated RBC % (auto) 0.0 D-Dimer 455 Anion Gap 13 Estim Creat Clear Calc 101.1 Estimated GFR > 60 Random Glucose 159 H Calcium 9.6 Total Bilirubin 1.1 H AST 29 ALT 61 H Alkaline Phosphatase 46 C-Reactive Protein 2.84 H Total Protein 6.1 L Albumin 3.6 Microbiology Microbiology Results: Microbiology 12/18/20 12:59 Blood Culture - Preliminary Blood - Venous No growth after 48 hours. 12/18/20 12:03 Blood Culture - Preliminary Blood - Venous No growth after 48 hours. Assessment and Plan (1) Acute respiratory failure with hypoxia: Status: Acute (2) COVID-19: Status: Acute Assessment and Plan: 60yo M with HTN presenting on 12th day of illness with COVID-19, against which he was not vaccinated found to be hypoxic despite outpatient monoclonal antibody infusion 1. acute hypoxic respiratory failure severe COVID-19 PNA blood culture prelim neg improving - continue isolation, dexamethasone d#3/10, taper oxygen consult ID pending -may be late to use remdesivir this far into illness - wean supplemental O2 as tolerated; encourage awake proning 2.HTN - continue lisinopril 3.VTE ppx - LMWH Quality Stroke Does the patient have a stroke diagnosis?: No VTE Prior VTE?: No VTE Risk Level:: Medical - moderate - high VTE Device Contraindication: N/A - Device Ordered VTE Drug Contraindication: N/A - Med Ordered
[2020-12-20] MEDS: Enoxaparin Sodium 40 MG/0.4 ML SYRINGE SUBCUT (16:23)
--- NOTE | 2020-12-20 18:17 | PC.NURSE ---
Patient OOB to recliner for majority of the day. Amb to restroom with standby staff assist and O2 tank. Patient tolerating 1L of O2 well, about 93% at rest, 88% with exertion.
[2020-12-21] VITALS (9 sets, daily range): BP systolic 132–145; BP diastolic 61–74; PULSE 46–76; RESP 18–20; TEMP 36.2–37.2; O2SAT 88–97
[2020-12-21] MEDS: lisinopriL 20 MG TABLET PO (08:44)
[2020-12-21] MEDS: dexAMETHasone sod phosphate 4 MG/ML VIAL 6 MG IVPUSH (08:45)
[2020-12-21] MEDS: 0.9 % Sodium Chloride Flush 3 ML SYRINGE IVFLUSH ×3 (08:45→19:42)
--- NOTE | 2020-12-21 15:35 | HO.PM.IMPN ---
Subjective Subjective Date of Service: 12/21/20 Interval History: f/u on covid pna, hypoxia... doing better, off o2 Review of Systems no fever no sob Physical Exam Vital Signs: Vital Signs: Last Vital Signs Temp 97.2 F 12/21/20 15:11 Pulse 61 12/21/20 15:11 Resp 20 12/21/20 15:11 BP 132/72 12/21/20 15:11 Pulse Ox 93 12/21/20 15:11 Oxygen Flow Rate 2 12/18/20 12:49 Body Mass Index 33.9 General: AO X 3, no acute distress Resp: normal effort, talk in full sentences CVS: S1,S2,RRR GI: +BS, NT, no distention Skin: No rash Neuro: motor grossly intact Psych: appropriate affect Objective Data Active Medications Acetaminophen (Acetaminophen 325 Mg Tablet) 650 mg PO Q6H PRN PRN Reason: Pain, Mild (Pain Scale 1-3) Dexamethasone Sodium Phosphate (Dexamethasone Sod Phosphate 4 Mg/Ml Vial) 6 mg IVPUSH DAILY [facility] Stop: 12/27/20 09:01 Last Admin: 12/21/20 08:45 Dose: 6 mg Documented by: AKI Enoxaparin Sodium (Enoxaparin Sodium 40 Mg/0.4 Ml Syringe) 40 mg SUBCUT Q24H [facility] Last Admin: 12/20/20 16:23 Dose: 40 mg Documented by: AKI Lisinopril (Lisinopril 20 Mg Tablet) 20 mg PO DAILY [facility]; Protocol Last Admin: 12/21/20 08:44 Dose: 20 mg Documented by: AKI Omeprazole (Omeprazole 20 Mg Capsule.Dr) 20 mg PO DAILY PRN PRN Reason: Acid Reflux Ondansetron HCl (Ondansetron Hcl 4 Mg/2 Ml Vial) 4 mg IVPUSH Q8H PRN PRN Reason: Nausea and Vomiting Polyethylene Glycol (Polyethylene Glycol 3350 17 Gm Powd.Pack) 17 gm PO DAILY PRN PRN Reason: constipation Senna (Sennosides 8.6 Mg Tablet) 17.2 mg PO BID [facility] Last Admin: 12/21/20 08:33 Dose: Not Given Documented by: AKI Non-Admin Reason: Patient Refused Sodium Chloride (0.9 % Sodium Chloride Flush 3 Ml Syringe) 3 ml IVFLUSH [facility] Last Admin: 12/21/20 08:45 Dose: 3 ml Documented by: AKI Labs CBC & Chem 7: 12/20/20 06:00 12/20/20 06:00 Microbiology Microbiology Results: Microbiology 12/18/20 12:59 Blood Culture - Preliminary Blood - Venous No growth after 48 hours. 12/18/20 12:03 Blood Culture - Preliminary Blood - Venous No growth after 48 hours. Assessment and Plan (1) Acute respiratory failure with hypoxia: Status: Acute (2) COVID-19: Status: Acute Assessment and Plan: 60yo M with HTN presenting on 12th day of illness with COVID-19, against which he was not vaccinated found to be hypoxic despite outpatient monoclonal antibody infusion 1. acute hypoxic respiratory failure severe COVID-19 PNA -hypoxia resolved, Off O2 -didn't qualify for home O2 -Dexamethason D4/10 2.HTN - continue lisinopril 3.VTE ppx - LMWH Home tomorrow Quality Stroke Does the patient have a stroke diagnosis?: No VTE Prior VTE?: No VTE Risk Level:: Medical - moderate - high VTE Device Contraindication: N/A - Device Ordered VTE Drug Contraindication: N/A - Med Ordered
[2020-12-21] MEDS: Enoxaparin Sodium 40 MG/0.4 ML SYRINGE SUBCUT (15:49)
--- NOTE | 2020-12-21 18:34 | PC.NURSE ---
Patient very anxious today, stating that he refuses to be discharged if his oxygen keeps going below 90%. This RN educated patient excessively regarding purposeful breathing and that his O2 SAT will change, but as long as he is not short of breath, he will be okay. Patient does not appear to be in any respiratory distress, able to speak in full sentences, and does not appear to have increased WOB. Patient verbalizes understanding. Patient underwent home O2 eval this afternoon. Patient's current O2 SAT 94% on room air. Will pass to oncoming RN.
[2020-12-22 03:08] VITALS: BP 128/70; PULSE 46; RESP 20; TEMP 36.6; O2SAT 93
[2020-12-22 08:00] VITALS: BP 161/80; PULSE 72; RESP 20; TEMP 36.9; O2SAT 95
[2020-12-22 08:42] VITALS: BP 161/80; PULSE 72
[2020-12-22] MEDS: lisinopriL 20 MG TABLET PO (08:42)
[2020-12-22] MEDS: 0.9 % Sodium Chloride Flush 3 ML SYRINGE IVFLUSH (08:42)
[2020-12-22] MEDS: Sennosides 8.6 MG TABLET 17.2 MG PO (08:42)
[2020-12-22] MEDS: dexAMETHasone sod phosphate 4 MG/ML VIAL 6 MG IVPUSH (08:42)
--- NOTE | 2020-12-22 10:36 | PM.DS ---
DS: Providers Provider Date of Service: 12/22/20 Date of admission: 12/18/20 16:56 Primary care physician: Zeina Talbert NP Consults: 12/18/20 16:28 Consult to Infectious Diseases Routine Consulting Provider: Sally Ordoñez Reason for consultation: COVID hypoxia DS: Diagnosis Discharge Diagnosis (1) Acute respiratory failure with hypoxia: Status: Acute (2) COVID-19: Status: Acute DS: Summary Hospital Course Hospital Course: Chief Complaint: dyspnea 60yo M with HTN not vaccinated against COVID-19 presenting on 12th day of illness with fever, chills, dry cough, and sore throat.? ? He was diagnosed with COVID-19 on 12/09/20 and has been monitoring his SaO2 with a pulse oximeter at home.? He was given monoclonal antibody treatment at [facility] 2 days ago.? He became hypoxic yesterday with SaO2 87% on room air.? Here in the ED, SaO2 was 88% on room air.? His was recently discharged from this hospital after being treated for COVID-19 pneumonia. He denies history of diabetes, heart failure, coronary artery disease, or chronic lung disease. Hospital course: He was admitted to hypoxic respirtory failure from covid 19 and treated with oxygen, IV steroid and and has signficantly improved and has been off oxygen for more than 24 hours, he did not qualify for home O2. He will be discharge with 5 more days of Dexamthasone for total of 10 days. To follow up with PCP to be reassess for need to go back to work Time Spent with Patient Time attestation: Total time spent providing and/or coordinating discharge services: Discharge coordination time: Greater than 30 minutes Quality: Stroke Does the patient have a stroke diagnosis?: No Physical Exam Vital Signs: Vital Signs: Last Vital Signs Temp 98.5 F 12/22/20 08:00 Pulse 72 12/22/20 08:42 Resp 20 12/22/20 08:00 BP 161/80 H 12/22/20 08:42 Pulse Ox 95 12/22/20 08:00 Oxygen Flow Rate 2 12/18/20 12:49 Body Mass Index 33.9 DS: Data Data Completed and Pending Labs on day of discharge: Preliminary micro results at discharge 12/18/20 12:59 Blood Culture - Preliminary Blood - Venous No growth after 48 hours. 12/18/20 12:03 Blood Culture - Preliminary Blood - Venous No growth after 48 hours. Discharge Plan Discharge Anticipated Discharge Date/Time: 12/22/20 10:31 Patient Disposition: Home, Self-Care Discharge Diagnosis: covid, hypoxia Referrals: Zeina Talbert, PATIENT PLACEMENT COORDINATOR [Primary Care Provider] - 1 Week Discharge Medications: New dexamethasone [Decadron] 6 mg tablet 6 mg PO DAILY Qty: 5 RF: 0 Continued lisinopril 20 mg tablet 1 tab PO DAILY RF: 0 ondansetron HCl 4 mg tablet 1 tab PO Q8H PRN (Reason: Nausea And Vomiting) RF: 0 omeprazole 20 mg capsule,delayed release(DR/EC) 1 cap PO DAILY PRN (Reason: Acid Reflux) RF: 0 Discharge Orders: Discharge Order (Routine); Ordered 12/22/20 Ordered By: Arsh Shea Diet: advance to usual diet Activity on Discharge: As tolerated Stand Alone Forms: Patient Portal Discharge page Care Plan Goals: Full recovery from covid 19 Health Concerns: covid 19 Plan of Treatment: Take dexamethasone as directed come to emergency or call 911 if your breathing becomes difficult follow up with your PCP to reassess to return to work Remain in covid isolation for 10 days from date of diagnosis and at least 24 hours of fever Assessment: as above
--- NOTE | 2020-12-22 11:06 | MHC.CM.PN ---
PT CLEARED TO DC HOME TODAY WITH NO SERVICES VIA SELF ARRANGED TRANSPORT
== END 2020-12-22 12:05 | disposition home or self-care (01) | DRG 137 ==
LOC: HO.ED 16:12 → HO.EDOVER 17:10 → HO.IMC 19:38
PROVIDERS: Physician Assistant; Admitting Provider Family Medicine; Emergency Provider Emergency Medicine; PCP Nurse Practitioner Family; Visit Provider Internal Medicine
DX: U07.1 COVID-19 (principal); J96.01 Acute respiratory failure with hypoxia; J12.82 Pneumonia due to coronavirus disease 2019; I10 Essential (primary) hypertension; Z79.899 Other long term (current) drug therapy
CPT/HCPCS: 36415; 71045; 71275; 76705; 80048; 80053; 80076; 82728; 83605; 83615; 83735; 84145; 85025; 85027; 85379; 86140; 87040; 87635; 93005; 96374; 99285; 99291; J1100; J1650; Q9967

== ENCOUNTER 2021-02-19 12:19 | Emergency (ER) | payer OTHER, SELFPAY ==
[2021-02-19 12:54] VITALS: BP 162/78; PULSE 92; RESP 18; TEMP 36.1; O2SAT 98; BMI 33.0
[2021-02-19] MEDS: Fluorescein Sodium STRIP 1 STRIP EYE-BOTH (14:22)
[2021-02-19] MEDS: Tetracaine HCl/PF 0.5% Oph Sol 4 ML DROPS 2 DROP EYE-BOTH (14:22)
--- NOTE | 2021-02-19 14:33 | ED_ITS ---
HPI - Eye Problem General Chief complaint: Eye Problems Stated complaint: rt eye injury Time Seen by Provider: 02/19/21 13:43 Source: patient Mode of arrival: ambulatory Limitations: no limitations History of Present Illness HPI Narrative: 60 year old male past medical history of HTN presents to the emergency department with complaints of right sided eye pain, and blood in his eye x1 hour. He states he is at work, he bent down to grab something, and hit his right eye on a slab of metal. He states that he immediately noted that there was blood in his eye, and his right eye hurt and was burning. He states that the metal did not go into his eye, but hit him on the outside of his eye. He was not wearing eye protection. He does not wear glasses, or contact lenses. He has no vision complaints at this time, he said initially his vision to his right eye is blurry, but now this has resolved. He denies headaches, vision changes, fevers, chills, nausea, vomiting, abdominal pain, chest pain, shortness of breath. He states he feels slightly anxious, in states I do not Wanna loose my only good eye . 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 chief complaint: eye redness and eye injury Onset (ago): hour(s) (1) Onset description: sudden Duration: constant Location: right eye Eye Symptoms: burning Place: work Mechanism: direct trauma Severity: moderate If Pain, Quality: burning Associated symptoms: none Treatments Prior to Arrival: none Related Data Home Medications Medication Instructions Recorded Confirmed lisinopril 20 mg tablet 1 tab PO DAILY 12/18/20 12/18/20 omeprazole 20 mg capsule,delayed 1 cap PO DAILY PRN 12/18/20 12/18/20 release ondansetron HCl 4 mg tablet 1 tab PO Q8H PRN 12/18/20 12/18/20 Previous Rx's Medication Instructions Recorded dexamethasone 6 mg tablet 6 mg PO DAILY #5 tab 12/22/20 (Decadron) erythromycin 5 mg/gram (0.5 %) eye 0.5 inch OPHTHALMIC (EYE) QID PRN 02/19/21 ointment 7 Days #3.5 g Allergies Allergy/AdvReac Type Severity Reaction Status Date / Time No Known Allergies Allergy Unverified 01/04/20 15:38 [No Known Allergies*] Review of Systems Review of Systems: Constitutional : No fevers, no chills, No changes in activity, No lethargy, No recent prior head injury, No agitation, No increased fussiness ENT/Mouth : No Ear Pain, No Nasal discharge/drainage Eyes: + Vision changes/blurry/decreased vision, No Eye Pain, No Swelling, + Redness, No Foreign Body, No Photophobia, no discharge, no drainage, no itching, no eyelid edema, no contact lens uses, no recent welding, + bleeding Cardiovascular : No Chest Pain, No SOB Respiratory : No Cough Gastrointestinal : No Nausea, No Vomiting, No abdominal Pain Genitourinary : No Dysuria, No Urinary Frequency, No Urinary Incontinence, No Urgency, No Flank Pain Musculoskeletal : No joint pain, No neck stiffness, No back pain/injury Skin : No lacerations Neuro : No unsteady gait, No Paresthesias, No Loss of Consciousness, No altered mental status, No dizziness, No Headache Denies past medical history of HIV, recent trauma, coagulopathy, recent spinal/ epidural procedure, new medication, URI symptoms, close contacts with similar symptoms, tick bite, or known CO2 exposure. Yes all other systems are reviewed and are negative COUNTS INCLUDE 234 BEDS AT THE [facility] Past Medical History Attestation statement: The following information was validated with the patient. Medical History HTN (hypertension) Social History Social History Household Members: Spouse Housing: House Do you presently have visiting nurse or other home services: No Patient Tobacco Use Status: Never used Tobacco Advance Directives: Yes Advance Directives Information Provided: Yes Advance Directives on File: No service: Yes Current occupational status: employed Physical Exam Vital Signs: Vital Signs: Last Vital Signs Temp 97 F 02/19/21 12:54 Pulse 92 02/19/21 12:54 Resp 18 02/19/21 12:54 BP 162/78 H 02/19/21 12:54 Pulse Ox 98 02/19/21 12:54 Body Mass Index 33.0 vital signs have been reviewed as normal and appeared to be correct. Blood pressure slightly elevated 162/78. Heart rate normal. Respiration rate normal. Temperature normal. Oxygen saturation normal. Appearance: Alert. Oriented X3. No acute distress. Head: Normal external exam. Normocephalic. Atraumatic. No Palacios signs noted. No raccoon eyes noted Eyes: PERRLA. EOMI no pain. left Conjunctiva normal + Slight injection to right conjucntive at the right lateral lower aspect, +Right sided subconjunctival hemorrhage noted. + small <1 cm corneal abrasion noted to the right eye in the 7 oclock position. Funduscopic exam within normal limits. Sclera normal. Eyelids normal. No papilledema noted. Anterior chamber normal. No photophobia noted. Pressure to right eye is 9 . Pressure to left eye is 11 . Visual acuity to right eye 20/20. Visual acuity to left eye 20/70. ENT: EAC normal. TM's Normal. Pharynx normal. Uvula midline. Moist mucous membranes. Neck: Normal inspection. Neck supple. FROM. No adenopathy. Thyroid Normal. No meningeal signs. No neck mass noted. CVS: Normal heart rate and rhythm. Heart sound normal. No murmurs noted. Pulses normal throughout. Respiratory: No respiratory distress. Painless inspiration. Breath sounds normal. Back: Full range of motion noted. Skin: Skin warm and dry. Normal skin color. Normal skin turgor. No rashes/lesions/lacerations noted. Extremities: No lower extremity edema. Extremities exhibit normal range of motion. Extremities nontender. Neuro: Oriented X 3. No motor deficit. No sensory deficit. Reflexes normal. MDM - Eye Problem MDM Narrative Medical decision making narrative: [id number] 60-year-old male past medical history significant for hypertension presents to the emergency department with right sided eye burning, instep conjunctiva hemorrhage secondary to a work related injury about an hour prior to his arrival. Patient was bending down, when a slab of metal hit his right outer eye. He states he and immediately started feeling a burning sensation, noted his conjunctiva have some blood in it, and initially had blurred vision, however this has resolved. He does not wear contact lenses. He is not on blood thinners Upon physical examination pressure to the left eye 11, right eye 9. 20/20 vision to the right eye, 20/70 patient to the left eye. Upon fluorescein staining it was noted that there is A small corneal abrasion < 1 cm noted to the right eye in the 7 o'clock position. No pain with extraocular movement. There is a small right subconjunctival hemorrhage noted. There is no abnormalities noted to the left eye. Pupils equal round reactive to light bilaterally Plan at this time is to discharge the patient home with erythromycin ointment, and ophthalmology follow-up. Medical Records Attestation: I reviewed the patient's medical records. Discharge Plan Discharge Clinical Impression: Corneal abrasion, Subconjunctival hemorrhage Patient Disposition: Home, Self-Care Instructions: Subconjunctival Hemorrhage (ED), Corneal Abrasion (ED) Additional Instructions: Follow-up with ophthalmology. Follow-up with your primary care provider Apply antibiotic as instructed. Return to the emergency department with new or worsening symptoms Prescriptions: New erythromycin 5 mg/gram (0.5 %) ointment 0.5 inch ophthalmic (eye) QID PRN (Reason: Bacterial conjunctivitis) 7 Days Qty: 3.5 RF: 0 No Action lisinopril 20 mg tablet 1 tab PO DAILY RF: 0 ondansetron HCl 4 mg tablet 1 tab PO Q8H PRN (Reason: Nausea And Vomiting) RF: 0 omeprazole 20 mg capsule,delayed release(DR/EC) 1 cap PO DAILY PRN (Reason: Acid Reflux) RF: 0 dexamethasone [Decadron] 6 mg tablet 6 mg PO DAILY Qty: 5 RF: 0 Referrals: Jalen Aparicio [Physician] - 2 days Stand Alone Forms: Work/School Release Interventions: ED Discharge Assessment Last Done: 02/19/21 14:52 Discharge Date/Time: 02/19/21 14:52
== END 2021-02-19 14:52 | disposition home or self-care (01) ==
PROVIDERS: Emergency Provider Emergency Medicine; PCP Nurse Practitioner Family
DX: S05.02XA Injury of conjunctiva and corneal abrasion without foreign body, left eye, initial encounter (principal); H11.32 Conjunctival hemorrhage, left eye; I10 Essential (primary) hypertension; W22.8XXA Striking against or struck by other objects, initial encounter; Y93.9 Activity, unspecified; Y92.9 Unspecified place or not applicable; Y99.0 Civilian activity done for income or pay
CPT/HCPCS: 99283; 99284